=== PATIENT | female | born 1995 | race Caucasian/White ===

== ENCOUNTER 2021-02-03 14:57 | Outpatient (CLI) | payer MEDICAID, SELFPAY ==
--- NOTE | 2021-02-03 15:08 | XR_ITS ---
WS: [id number] RIGHT SHOULDER: 3 VIEW(S) TECHNIQUE: Internal and external rotation with Y view. HISTORY: PAIN IN RIGHT SHOULDER COMPARISON: None available. No fracture or dislocation or soft tissue abnormality. Calcific deposits over the humeral head with the largest measuring 5.3 mm. Visualized RIGHT lung is clear. XR/XR shoulder RT min 2V* [id number] IMPRESSION: Calcific tendinitis distal rotator cuff.
== END 2021-02-03 14:58 | disposition home or self-care (01) ==
PROVIDERS: Visit Provider Family Medicine
DX: M25.511 Pain in right shoulder (principal); M75.31 Calcific tendinitis of right shoulder
CPT/HCPCS: 73030

== ENCOUNTER 2021-02-09 17:54 | Emergency (ER) | payer MEDICAID, SELFPAY ==
[2021-02-09 18:13] VITALS: BP 111/73; PULSE 101; RESP 18; TEMP 36.9; O2SAT 100; BMI 27.4
[2021-02-09 20:32] VITALS: BP 133/88; PULSE 104; RESP 17; O2SAT 97
[2021-02-09 21:06] VITALS: BP 126/87; PULSE 90; RESP 16; O2SAT 99
[2021-02-09] MEDS: TRAMadol 50 mg Tablet PO (21:08)
[2021-02-09] MEDS: predniSONE 20 mg Tablet 60 MG PO (21:09)
--- NOTE | 2021-02-09 21:21 | ED_ITS ---
HPI - Back Pain/Injury General: Chief Complaint: Back Pain/Injury Stated Complaint: BACK PAIN Time Seen by Provider: 02/09/21 20:32 History of Present Illness: HPI Narrative: Patient said she bent over and felt pain in her low back. Has history of this happening years ago denies any other significant injuries. MD elicited complaint: back pain Pertinent past history: prior back pain Onset (ago): hour(s) Timing: constant Severity: moderate Similar Symptoms Previously: Yes Quality: aching Location: lumbar spine Radiation: none Exacerbating factors: movement and walking Relieving factors: immobilization Context: bending Associated symptoms: Reports no associated symptoms; Deny abdominal pain, chills, fever(s), nausea or vomiting Review of Systems Const: Denies: fever(s), chills or body aches Eyes: Denies: change in vision or blurry vision ENMT: Denies: throat pain or nasal congestion Card: Denies: chest pain or dyspnea on exertion Resp: Denies: dyspnea, productive cough or non-productive cough GI: Denies: abdominal pain, nausea or vomiting Musc: Reports: back pain (Hurt back while bending over earlier today. Denies any radiculopathy); Denies: extremity pain Skin/Breast: Denies: rash Neuro: Denies: headache(s) Psych: Denies: anxiety or depression Tomy/Lymph: Denies: easy bruising [facility] ED Female Reproductive History: Date of last menstrual period: 02/05/21 Physical Exam Const: COMMON NORMALS: no acute distress Back/Pelvis: LUMBAR SPINE/LOWER BACK: Yes paraspinal muscle tenderness, No paraspinal muscle spasm, Yes straight leg raise positive right Straight leg raise positive details right: at 30 degrees and Yes straight leg raise positive left Straight leg raise positive details left: at 30 degrees Psych: COMMON NORMALS: mental status grossly normal Course Vital Signs: Vital signs: Vital Signs Temperature 98.4 F 02/09/21 18:13 Pulse Rate 90 02/09/21 21:06 Respiratory Rate 16 02/09/21 21:06 Blood Pressure 126/87 02/09/21 21:06 Pulse Oximetry 99 02/09/21 21:06 Coding Level of Care Code ED [employer] for [employer]ameka Fitzgerald
[2021-02-09 22:06] VITALS: BP 133/79; PULSE 77; RESP 16; O2SAT 100
== END 2021-02-09 22:09 | disposition home or self-care (01) ==
PROVIDERS: Emergency Provider Nurse Practitioner Family
DX: M54.9 Dorsalgia, unspecified (principal)
CPT/HCPCS: 99283; J7512

== ENCOUNTER 2021-02-18 11:25 | Outpatient (CLI) | payer MEDICAID, SELFPAY ==
--- NOTE | 2021-02-18 11:30 | XR_ITS ---
WS: [id number] LUMBAR SPINE: 3 VIEWS TECHNIQUE: AP, lateral and L5-S1 spot. HISTORY: LOW BACK PAIN COMPARISON: None available. Very mild RIGHT curvature lumbar spine. Posterior alignment is normal. No fractures. Pedicles are all identified. Very minimal facet joint arthritis at L5-S1. SI joints are symmetric bilaterally. No soft tissue abnormalities. XR/XR lumbar spine 2-3V* [id number] IMPRESSION: Minimal RIGHT curvature lumbar spine. No acute findings.
== END 2021-02-18 11:26 | disposition home or self-care (01) ==
PROVIDERS: Visit Provider Nurse Practitioner
DX: M54.5 Low back pain (principal); M25.511 Pain in right shoulder
CPT/HCPCS: 72100

== ENCOUNTER 2021-02-26 13:04 | Outpatient (CLI) | payer MEDICAID, SELFPAY ==
--- NOTE | 2021-02-26 13:22 | MR_ITS ---
WS: [id number] MRI RIGHT SHOULDER NONCONTRAST TECHNIQUE: Sagittal T2, coronal T1, T2 and proton density imaging. Axial gradient PDE imaging. CLINICAL INFORMATION: RIGHT SHOULDER PAIN COMPARISON: Radiograph February 03, 2021 FINDINGS: Normal AC joint. Mild downsloping of the acromion. Subacromial space is well-preserved. Normal bone m arrow signal in the humeral head and neck. No acute fractures. Normal bony glenoid. Normal supraspina tus and infraspinatus. Normal teres minor. Normal subscapularis. Normal biceps tendon in the bicipital groove. Normal biceps labral anchor. Glenoid labrum appears rupinder ssly normal. Normal soft tissues. MR/MR shoulder RT wo con* [id number] IMPRESSION: 1. Normal AC joint and glenohumeral joint. Mild downsloping of the acromion. 2. No rotator cuff tears. Rotator cuff is intact. 3. Calcific tendinitis at the distal supraspinatus insertion. 4. Normal biceps tendon in the bicipital groove. 5. Normal bone marrow signal in the humerus and glenoid. 6. No other significant findings.
== END 2021-02-26 13:05 | disposition home or self-care (01) ==
PROVIDERS: Visit Provider Nurse Practitioner
DX: M25.511 Pain in right shoulder (principal); M65.221 Calcific tendinitis, right upper arm
CPT/HCPCS: 73221

== ENCOUNTER → 2021-08-25 13:27 | Outpatient (BNVA) | payer MEDICAID, SELFPAY | PROVIDERS: Visit Provider Psychiatry & Neurology Psychiatry | DX: F31.81 Bipolar II disorder (principal); F43.12 Post-traumatic stress disorder, chronic; F41.1 Generalized anxiety disorder | CPT/HCPCS: 99204 ==

== ENCOUNTER → 2021-10-02 12:28 | Outpatient (BNVA) | payer MEDICAID, SELFPAY | PROVIDERS: Visit Provider Psychiatry & Neurology Psychiatry | DX: F41.1 Generalized anxiety disorder (principal); F43.12 Post-traumatic stress disorder, chronic; F31.81 Bipolar II disorder | CPT/HCPCS: 99214 ==